=== PATIENT | female | born 1955 | race Caucasian/White ===

== ENCOUNTER 2023-02-07 11:01 | Emergency (ER) | payer MEDICARE, SELFPAY ==
[2023-02-07 11:42] VITALS: BP 142/56; PULSE 73; RESP 18; TEMP 36.8; O2SAT 98
--- NOTE | 2023-02-07 13:12 | ED.URI ---
HPI - URI/Sore Throat General Chief Complaint: Upper Respiratory Infection Stated Complaint: cough,hoarse Time Seen by Provider: 02/07/23 13:12 History of Present Illness HPI Narrative: 67-year-old female presented for complaint of cough for 5 days and losing her voice over the past few days. Also reports body aches and sinus congestion at the onset. She does negative for COVID at home twice since onset. Denies shortness of breath, wheezing, nausea, vomiting, diarrhea, fevers or chills. Taking [id number] medications for symptoms. Related Data Allergies Allergy/AdvReac Type Severity Reaction Status Date / Time No Known Allergies Allergy Verified 02/07/23 12:30 Review of Systems Review of Systems: CONSTITUTIONAL: Denies body aches, fever, chills, or sweats. EYES: Denies visual changes, redness, or discharge. ENT: Reports rhinorrhea, congestion CARDIOVASCULAR: Denies chest pain, palpitations, or edema. RESPIRATORY: Reports cough denies dyspnea. GASTROINTESTINAL: Denies abdominal pain, nausea, vomiting, or diarrhea. SKIN: Denies rash, itching, or wounds. MUSCULOSKELETAL: Denies back pain, joint pain, or myalgia. NEUROLOGIC: Denies headache PMFSH Past Medical History Medical History (Updated 02/07/23 @ 13:22 by Shavonne Osullivan APRN) Essential (primary) hypertension Surgical History Surgical History History of tonsillectomy and adenoidectomy Family History Family History Mother Hypertension Cerebrovascular accident Aneurysm Sibling Renal cancer Social History Social History Smoking status: Never smoker Second hand tobacco smoke exposure: No Alcohol intake: current Alcohol use details: Socially Substance use: never Substance use type: does not use Living arrangements: alone Occupation/Education: retired Gender identity (if verbalized by the patient): Female Spiritual care concerns: No Agree to blood products: Yes Exam Narrative: GENERAL: well-appearing, no acute distress. EYES: conjunctivae clear ENT: Mucous membranes moist. TMs pearly philippe with normal light reflex bilaterally; no tragal tenderness. Oropharynx not erythematous without lesions. Tonsils absent. Hoarse voice. no drooling, no trismus, uvula midline. No tripod positioning, hot potato voice, or soft palate swelling. NECK: Supple. No lymphadenopathy CHEST: Clear to auscultation, breath sounds equal. No respiratory distress, speaks in full sentences. HEART: Regular rate and rhythm. No murmur heard. SKIN: Warm, dry, no rash. NEURO: Alert and oriented x3. Course Course Emergency Course: Patient is aware of diagnosis, understands and agrees to treatment plan. Anticipatory guidance given. Patient agrees to follow-up as directed and is aware of reasons to seek care at the emergency department. Portions of this record may have been created with voice recognition software Level of Care: Express Care Visit Vital Signs Vital signs: Vital Signs Temperature 98.2 F 02/07/23 11:42 Pulse Rate 73 02/07/23 11:42 Respiratory Rate 18 02/07/23 11:42 Blood Pressure 142/56 H 02/07/23 11:42 Pulse Oximetry 98 02/07/23 11:42 Oxygen Delivery Room Air 02/07/23 11:42 Temperature 98.2 F 02/07/23 11:42 Pulse Rate 73 02/07/23 11:42 Respiratory Rate 18 02/07/23 11:42 Blood Pressure 142/56 H 02/07/23 11:42 Pulse Oximetry 98 02/07/23 11:42 Oxygen Delivery Room Air 02/07/23 11:42 MDM - URI/Sore Throat MDM Narrative Medical decision making narrative: Neg strep result reviewed with pt. Advise supportive treatments. Patient is appropriate for outpatient treatment and follow-up. Differential Diagnosis Differential diagnosis: Likely upper respiratory infection, viral infection and pharyngitis Discharge
== END 2023-02-07 13:24 | disposition home or self-care (01) ==
PROVIDERS: Emergency Provider Nurse Practitioner Family; PCP Family Medicine Adolescent Medicine
DX: J40 Bronchitis, not specified as acute or chronic (principal); I10 Essential (primary) hypertension
CPT/HCPCS: 87081; 87880; 99213; G0463